=== PATIENT | female | born 1990 | race Caucasian/White ===

== ENCOUNTER 2018-11-12 18:16 | Emergency (ER) | payer OTHER ==
[~2018-11-12] VITALS: Ht 152.4 cm; Wt 90.7 kg
[~2018-11-12 18:16] MED LIST: ALBU90OI INH; AMOX500 PO; Budeprion Xl300 MG PO; Bupropion Xl150 MG PO; CEPH500 PO; CLON.1 PO; CYCL10 PO; FEXO180 PO; GUAI600T33 PO; HYDACE5 PO; IBUP800 PO; PRED10 PO; PRED20 PO; PROM25 PO; SULTRIDS PO
[2018-11-12] MEDS ORDERED: Crutch1 EACH MISC (19:20)
== END 2018-11-12 19:37 | disposition home or self-care (01) ==
LOC: ER 18:16
DX: M25.561 Pain in right knee (principal); Z79.899 Other long term (current) drug therapy; F32.9 Major depressive disorder, single episode, unspecified
CPT/HCPCS: 73564; 99283-25

== ENCOUNTER 2023-06-01 23:16 | Emergency (ER) | payer SELFPAY ==
[~2023-06-01] VITALS: Ht 152.4 cm; Wt 54.4 kg
[~2023-06-01 23:16] MED LIST changes: +Crutch1 EACH MISC
[2023-06-02] MEDS ORDERED: PENVK500 PO (01:21)
[2023-06-02 01:29] VITALS: BP 105/74
== END 2023-06-02 01:30 | disposition home or self-care (01) ==
LOC: ER 23:16
DX: K04.7 Periapical abscess without sinus (principal)
CPT/HCPCS: 99282; A9270

== ENCOUNTER 2023-06-24 12:47 | Inpatient (IN) | payer SELFPAY ==
[~2023-06-24] VITALS: Ht 152.4 cm; Wt 49.3 kg
[~2023-06-24 12:47] MED LIST changes: +PENVK500 PO
[2023-06-24 14:52] LABS: Source, Urine Clean Catch
[2023-06-24 15:15] LABS: Appearance, Urine Cloudy (Clear); Blood, Urine Neg (Neg); Color, Urine Amber (P-Yellow); Glucose Qualitative, Urine Neg (Neg); Ketones, Urine 1+ (Neg); Leukocyte Esterase, Urine 2+ (Neg); Nitrite, Urine Neg (Neg); Protein, Urine 2+ (Neg); Urobilinogen, Urine 1+ (Normal)
[2023-06-24 15:17] LABS: Bilirubin, Urine 1+ (Neg)
[2023-06-24 15:17] LABS: BASOPHILS ABSOLUTE AUTO 0.02 K/mm3 (0.00-0.23); BASOPHILS PERCENT AUTO 0 % (0-2); EOSINOPHILS PERCENT AUTO 0 % (0-6); Hematocrit 34.2 % (33.0-51.0); Hemoglobin 11.3 g/dL (11.5-16.0); IMMATURE GRAN ABSOLUTE AUTO 0.03 K/mm3 (0.00-0.10); IMMATURE GRAN PERCENT AUTO 0 % (0-1); LYMPHOCYTES ABSOLUTE AUTO 1.26 K/mm3 (0.84-5.20); LYMPHOCYTES PERCENT AUTO 14 % (21-46); MONOCYTES ABSOLUTE AUTO 0.74 K/mm3 (0.16-1.47); MONOCYTES PERCENT AUTO 8 % (4-13); Mean Corpuscular HGB 28.7 pg (26.0-34.0); Mean Corpuscular Volume 87 fL (80-100); Mean Platelet Volume 10.7 fL (9.1-12.4); NEUTROPHILS ABSOLUTE AUTO 6.95 K/mm3 (1.96-9.15); NEUTROPHILS PERCENT AUTO 77 % (41-73); Platelet Count 299 K/mm3 (150-400); RDW Standard Deviation 41.3 fL (35.1-46.3); Red Blood Cell Count 3.94 M/mm3 (3.80-5.20)
[2023-06-24 15:22] LABS: Amorphous Mod (0-Heavy)
[2023-06-24 15:23] LABS: Bacteria Few /hpf; Red Blood Cells, Urine 0-2 /hpf (0-2); Squamous Epithelial Cells Few /hpf (Few)
[2023-06-24 15:39] LABS: Albumin, Blood 2.8 g/dL (3.4-5.0); Albumin/Globulin Ratio 0.5 (0.8-1.8); Bilirubin, Total 0.5 mg/dL (0.1-1.0); Bun/Creatinine Ratio 25.8 (12.0-20.0); Calcium, Blood 8.9 mg/dL (8.5-10.1); Creatinine, Blood 0.39 mg/dL (0.40-1.00); Globulin, Blood 5.3 g/dL (2.2-4.0); Potassium, Blood 3.9 mmol/L (3.5-5.5); Total Protein, Blood 8.1 g/dL (6.4-8.2)
--- NOTE | 2023-06-24 18:42 | NUR ---
ARRIVED TO ROOM VIA W/C, DENIES ANY PAIN OR ANY DISCOMFORT AT THIS TIME, ORIENTED TO ROOM AND CALL LIGHT SYSTEM, REPORT TO NOC RN.
[2023-06-24 18:49] VITALS: BP 105/62
--- NOTE | 2023-06-24 19:06 | NUR ---
REPORT RECEIVED REPORT FROM ARLEN LEIJA, REPORTED PT HAD NO PAIN/ NAUSEA. AT BEDSIDE REPORT- PT STATED NO NEEDS STATED AT THIS TIME. CALL LIGHT WITHIN REACH.
[2023-06-25] VITALS (23 sets, daily range): BP systolic 88–137; BP diastolic 51–91
--- NOTE | 2023-06-25 05:38 | NUR ---
SHIFT SUMMARY S/P CHOLESYSTITIS. NO ACUTE CHANGES OVERNIGHT. VS WNL FOR PT. A&O x4. NPO SINCE MIDNIGHT IN ANTICIPATION OF SURGERY LATER TODAY. TOILETING/AMBULATING INDEPENDENTLY. MEDICATED PER EMAR FOR RLQ PAIN, PT REPORTS TOLERABLE. AT BEDSIDE. CALL LIGHT WITHIN REACH, BED IN LOWEST POSITION, WILL REPORT TO DAY RN.
--- NOTE | 2023-06-25 07:38 | NUR ---
ASSESSMENT: PT SLEEPING AT THIS TIME WITH SPOUSE IN THE BED. RESP E/U. NO S/S DISTRESS. CALL LIGHT IN REACH. WILL FULLY ASESS WHEN PT IS AWAKE AND ALERT.
--- NOTE | 2023-06-25 11:58 | NUR ---
SURGERY: PT TO DAY SURGERY AT THIS TIME. SURGICAL WASH COMPLETE. SURGICAL PKT COMPLETED. PAS PLCED. PT UP TO VOID. WILL CONT TO MONITOR WHEN PT RETURNS POST OP.
--- NOTE | 2023-06-25 14:34 | NUR ---
06/25/23 1434 ONEIL MONTOYA LAPAROSCOPIC CHOLECYSTECTOMY WAS CONVERTED TO ABDOMINAL CHOLECYSTECTOMY AT 1349.
--- NOTE | 2023-06-25 16:12 | NUR ---
POST OP: PT ARRIVED TO ROOM POST OPEN JESUS. PT 03/23 PAIN. MEDICATED PRIOR TO TRANSFER BY PACU. PT HAS YUNIEL DRESSING TO RIGHT ABDOMEN ALONG WITH ZULLY DRAIN. ZULLY WITH 70CC OUT UPON ARRIVAL. IRINEO TO UMBILICAL INCISION. KPAD PLACED TO ABDOMEN FOR PAIN. PAS TO BLE. WILL CONT TO MONITOR.
--- NOTE | 2023-06-25 19:42 | NUR ---
PT STABLE POST OPEN JESUS TODAY. PT RATES PAIN HIGH. MEDICATED PER EMAR ABLE. PT GIVEN KPAD FOR COMFORT. PT HAS NO APPETITE. YUNIEL TO RIGHT ABDOMEN, CDI. ZULLY DRAIN WITH 110 TOTAL SANGUINOUS OUTPUT THIS SHIFT. PT HAS UMBILICAL INCISION WITH IRINEO THAT HAS NO DRAINAGE. IV INFUSING PER EMAR. PT VOIDING WELL. PENDING UA WITH NO GROWTH ON DAY ONE. AT BEDSIDE ATTENTIVE. USES CALL LIGHT APPROPRIATELY.
[2023-06-26 03:07] VITALS: BP 104/74
--- NOTE | 2023-06-26 06:02 | NUR ---
SHIFT SUMMARY POD 1-OPEN JESUS. REPORTS CONSTANT 8-10/10 PAIN WHILE LAYING IN BED. MOANS & SAYS "OW" WHILE THIS NURSE IN RM BUT LYING STILL AND ABLE TO MAKE A PHONE CALL TO REQUESTING HOT WATER FOR TEA. MEDICATED c 0.5MG IV DILAUDID FOR 10/10 PAIN, WITHIN 2HR PT REPORTING PAIN BACK @10/10. THEREFORE MEDICATED c 5MG OXYCODONE & TYLENOL, WITHIN 40MIN PT REQUESTING IV DILAUDID STATING OXYCODONE DIDNT TOUCH PAIN. ENCOURAGED IV TORADOL USE & PT DENIED UNLESS GIVEN c IV DILAUDID. MEDICATED c BOTH & PT ABLE TO REST COMFORTABLY W/O ANY DISCOMFORT FROM 2300 TO 0300 WHEN SHE REQUESTED IV DILAUDID AGAIN. INFORMED PT SHE WILL NEED TO GIVE PO PAIN MEDS A CHANCE TO WORK TO BE ABLE TO DC HOME EVENTUALLY, PT AKNOWLEDGED. PT EMOTIONALLY LABILE, TEARFUL, REPORTS FEELING "SAD ALL THE TIME, STRESSED c LIFE." 3 IRINEO BELOW UMBILICUS C/D/I & OPEN TO AIR. DIAGONAL YUNIEL ACROSS ABD C/D/I. ZULLY DRAIN TO RLQ c 90ML BRIGHT RED, SANGUINOUS, CLOUDY OUTPUT. ABD TENDER TO PALPATION, ACTIVE BT R QUAD & HYPOACTIVE BT L QUADS. DENIES N/V. PHIL MIN PO, TAKING SIPS OF DRINKS T/O NIGHT. UP TO VOID ON BSC 1x c MIN ASSIST. PT HAS CLOUDY DARK ORANGE URINE. CALL LIGHT IN REACH, WILL MONITOR
[2023-06-26 07:26] VITALS: BP 110/82
[2023-06-26 14:43] VITALS: BP 112/77
--- NOTE | 2023-06-26 18:12 | NUR ---
SHIFT SUMMARY PT POD 1 LAP CONVERTED TO OPEN JESUS. PICCO DRESSING C/D/I. ZULLY DRAIN W/50ML SANGUINOUS OUTPUT THIS SHIFT. PT HAS CONTINUED TO HAVE SIGNIFICANT PAIN T/O SHIFT. ROXICODONE INCREASED TO 10MG PO Q4 PRN MODERATE PAIN. PT CONTINUES TO REQUIRE 0.5MG IV DILAUDID FOR SEVERE BREAKTHROUGH PAIN,CONTINUOUS BIOX IN PLACE.ALSO RECIEVING IV TORADOL AND PO TYLENOL. PT AMBULATED IN HALLWAY TWICE. TOLERATING SMALL AMTS PO WITH NO N/V, SALINE LOCKED. VOIDING W/O DIFFICULTY.
[2023-06-26 19:39] VITALS: BP 129/78
[2023-06-27 04:03] VITALS: BP 101/63
[2023-06-27 05:00] LABS: BASOPHILS ABSOLUTE AUTO 0.02 K/mm3 (0.00-0.23); BASOPHILS PERCENT AUTO 0 % (0-2); EOSINOPHILS PERCENT AUTO 0 % (0-6); Hematocrit 27.6 % (33.0-51.0); IMMATURE GRAN ABSOLUTE AUTO 0.02 K/mm3 (0.00-0.10); IMMATURE GRAN PERCENT AUTO 0 % (0-1); LYMPHOCYTES ABSOLUTE AUTO 1.39 K/mm3 (0.84-5.20); LYMPHOCYTES PERCENT AUTO 19 % (21-46); MONOCYTES ABSOLUTE AUTO 0.61 K/mm3 (0.16-1.47); MONOCYTES PERCENT AUTO 8 % (4-13); Mean Corpuscular HGB 28.1 pg (26.0-34.0); Mean Corpuscular HGB Conc 32.6 g/dL (31.5-36.5); Mean Corpuscular Volume 86 fL (80-100); Mean Platelet Volume 10.6 fL (9.1-12.4); NEUTROPHILS ABSOLUTE AUTO 5.36 K/mm3 (1.96-9.15); NEUTROPHILS PERCENT AUTO 72 % (41-73); Platelet Count 340 K/mm3 (150-400); RDW Coefficient Variation 13.1 % (11.7-14.2); RDW Standard Deviation 41.3 fL (35.1-46.3)
--- NOTE | 2023-06-27 05:53 | NUR ---
SHIFT SUMMARY POD 2-OPEN JESUS. REPORTS PAIN IS SIGNIFICANTLY BETTER TODAY. MEDICATED 1x c 0.5MG IV DILAUDID, 30MG IV TORADOL & 650MG TYLENOL, ALSO 2x c 10MG OXYCODONE. HAS BEEN ABLE TO AMBULATE HALLS ON OWN. DENIES N/V. REPORTS PASSING FLATUS. TOLERATING PO INTAKE. RLQ ZULLY c 40ML SANGUINOUS DRAINAGE OUT. DIAGONAL YUNIEL ACROSS ABD C/D/I. VSS. CALL LIGHT IN REACH, WILL MONITOR.
[2023-06-27 05:58] LABS: Albumin/Globulin Ratio 0.5 (0.8-1.8); Bilirubin, Total 0.3 mg/dL (0.1-1.0); Bun/Creatinine Ratio 37.7 (12.0-20.0); Calcium, Blood 8.2 mg/dL (8.5-10.1); Creatinine, Blood 0.37 mg/dL (0.40-1.00); Globulin, Blood 4.3 g/dL (2.2-4.0); Potassium, Blood 3.8 mmol/L (3.5-5.5); Total Protein, Blood 6.3 g/dL (6.4-8.2)
[2023-06-27 07:34] VITALS: BP 103/66
[2023-06-27] MEDS ORDERED: OXYC10ER PO (12:15)
--- NOTE | 2023-06-27 18:52 | NUR ---
SHIFT SUMMARY PT POD 2 LAP CONVERTED TO OPEN JESUS. PICCO DRESSING COMPRESSED, NO DRAINAGE PRESENT. ZULLY WITH 100ML SANGUINOUS DRAINAGE BEGINING OF SHIFT THEN MIN OUTPUT THIS EVENING. PAIN IMPROVED T/O SHIFT, PLAN TO DC HOME TOMORROW.
[2023-06-27 19:21] VITALS: BP 102/72
[2023-06-28 05:04] VITALS: BP 107/74
--- NOTE | 2023-06-28 06:58 | NUR ---
SHIFT SUMMARY AOX4. POD 3-OPEN JESUS. ZULLY RLQ c 30ML SEROSANGUINOUS DRAINAGE. PT EDUCATED & SHOWN HOW TO EMPTY ZULLY DRAIN. DIAGONAL YUNIEL ACROSS ABD INTACT. DENIES N/V. TOLERATING PO. PASSING FLATUS. REPORTS PAIN IS MUCH BETTER THEN PREVIOUS NIGHT. PAIN 01/21 RLQ ABD. CALL LIGHT IN REACH. PLAN TO DC HOME TODAY.
[2023-06-28 07:57] VITALS: BP 99/69
[2023-06-28 07:58] VITALS: BP 101/68
--- NOTE | 2023-06-28 09:58 | NUR ---
ARRIVED FROM PACU VIA LUCINDA, AWAKE, A&OX4, DENIES ANY NEED FOR PAIN MEDS AT THIS TIME, DENIES ANY NAUSEA, LUNGS CLEAR T/O, HRR, HYPOACTIVE BT'S X4, ABD SOFT AND NONTENDER, PERIPAD IN PLACE, NO DRAINAGE NOTED AT THIS TIME, VAGINAL PACKING IN PLACE PER PAIN COORDINATOR, MANN CATH IN PLACE DRAINING CLEAR, YELLOW URINE, CONT. TO MONITOR FOR ANY CHANGES.
--- NOTE | 2023-06-28 10:19 | NUR ---
DC'D HOME, DC INSTRUCTIONS GIVEN, VERBALIZED UNDERSTANDING, BELONGINGS GIVEN TO PT.
--- NOTE | 2023-06-28 10:27 | NUR ---
IV PULLED INTACT. NO TELE. WHEELED DOOR TO DISCHARGE AT 1015
== END 2023-06-28 10:17 | disposition home or self-care (01) | DRG 414 ==
LOC: ER 12:47 → SURS 12:48
PROVIDERS: Physician Assistant; ADMIT Surgery
PROC: 0FT40ZZ Resection of Gallbladder, Open Approach (ICD-10-PCS; principal; 2023-06-25 12:40)
PROC: 0FJ44ZZ Inspection of Gallbladder, Percutaneous Endoscopic Approach (ICD-10-PCS; 2023-06-25 12:40)
DX: K80.00 Calculus of gallbladder with acute cholecystitis without obstruction (principal); K82.2 Perforation of gallbladder; Z79.2 Long term (current) use of antibiotics; F32.A Depression, unspecified; K66.0 Peritoneal adhesions (postprocedural) (postinfection)
CPT/HCPCS: 36415; 76705; 80053; 81001; 81025; 85025; 87086; 88304; 94760; 94762; 99285-25; A9270; J0295; J0690; J1100; J1170; J1885; J2250; J2405; J2704; J3010; J7030

== ENCOUNTER 2023-07-01 17:46 | Emergency (ER) | payer SELFPAY ==
[~2023-07-01] VITALS: Ht 152.4 cm; Wt 54.4 kg
[~2023-07-01 17:46] MED LIST changes: +OXYC10ER PO
[2023-07-01 18:21] VITALS: BP 111/76
== END 2023-07-01 20:27 | disposition home or self-care (01) ==
LOC: ER 17:46
DX: Z48.815 Encounter for surgical aftercare following surgery on the digestive system (principal); Z90.49 Acquired absence of other specified parts of digestive tract
CPT/HCPCS: 99283

== ENCOUNTER → 2024-06-29 | Outpatient (CLI) | payer BC ==
[2024-06-30 12:10] LABS: Bacterial Vaginosis PCR Positive (NEGATIVE); Candida Group, PCR NOT DETECTED (NOT DETECT); Candida glabrata-krusei, PCR NOT DETECTED (NOT DETECT)
== END | disposition home or self-care (01) ==
LOC: LAB SHORT 18:38 → LAB 18:38
PROVIDERS: Registered Nurse Community Health
DX: N89.8 Other specified noninflammatory disorders of vagina (principal)
CPT/HCPCS: 81515